=== PATIENT | male | born 1950 | race Caucasian/White ===

== ENCOUNTER 2025-04-03 19:27 | Emergency (ER) | payer MEDICARE, BC ==
[~2025-04-03] VITALS: Ht 172.7 cm; Wt 59.1 kg
[~2025-04-03 19:27] MED LIST: NO HOME MEDS
[2025-04-03 19:36] VITALS: TEMP 97.7
--- NOTE | 2025-04-03 20:01 | Physician Documentation ---
History of Present Illness ~ Chief Complaint: 5150 Stated Complaint: Time Seen by MD: 19:40 HPI Patient presents to the emergency room brought in on a written 5150. Patient was wondering on 44. Could not give a number address therefore police brought in here. History of dementia. We are able to contact brother who states that has dementia is really picked up over the past two months and he feels the patient needs to be conserved. Medication Reconciliation Allergies: Coded Allergies: No Known Allergies (Unverified , 04/03/25) Miscellaneous Medications Home Med List (No Home Medications), (Reported) Home Med List (No Home Medications), (Reported) Past Medical History Patient History: Pulmonary fibrosis FATHER (Pulmonary fibrosis) Brothers (History of pulmonary fibrosis in his elder brother) Review of Systems ROS All review of systems negative except as per HPI Physical Exam Vital Signs: Temperature: 97.7, Source: Oral, Heart Rate: 97, Respiratory Rate: 15, BP: 159/96, Pulse Oximetry: 96, Weight: 59.090 Oxygen Flow Rate: 0 Physical Exam General: Patient is awake, alert, pleasantly demented. Cooperative Head: Normocephalic and atraumatic. Eyes: Conjunctival normal. EOMI. PERRL. ENT: Mucous membranes moist. Neck: Supple, trachea is midline. Chest: Clear to auscultation bilaterally without rales, rhonchi, or wheezes. There is no accessory muscle use or retractions. Cardiac: RRR without murmurs, gallops, or rubs. Psych: Cooperative, forgetful, good eye contact Progress Results/Orders Results/Orders Orders - ARMANDO CHAVEZ MD Urinalysis (04/03/25 19:38) Drug Screen, Urine (04/03/25 19:38) Med Rec (04/03/25 19:38) Close Observation Level (04/03/25 19:38) Covid19 Binax Poc Result Entry (04/03/25 19:38) Regular Diet (04/04/25 Breakfast) Ct Head (04/03/25 19:40) Completed Orders - ARMANDO CHAVEZ MD Cbc/Diff (04/03/25 19:38) Ethanol (04/03/25 19:38) TSH (04/03/25 19:38) BMP (04/03/25 19:38) Ct Head (04/03/25 19:40) Vital Signs 04/03/25 04/03/25 19:36 19:59 Temp 97.7 Pulse 97 Resp 15 18 B/P (MAP) 159/96 Pulse Ox 96 O2 Flow Rate 0 Laboratory Tests Test 04/03/25 20:06 White Blood Count 8.9 Red Blood Count 4.49 L Hemoglobin 12.7 L Hematocrit 37.9 L Mean Corpuscular Volume 84.4 Mean Corpuscular Hemoglobin 28.2 Mean Corpuscular Hemoglobin Concent 33.4 Red Cell Distribution Width 14.7 H Platelet Count 340 Mean Platelet Volume 7.3 L Neutrophils (%) (Auto) 85.1 H Lymphocytes (%) (Auto) 8.4 L Monocytes (%) (Auto) 5.7 Eosinophils (%) (Auto) 0.3 Basophils (%) (Auto) 0.5 Neutrophils # (Auto) 7.6 Lymphocytes # (Auto) 0.7 L Monocytes # (Auto) 0.5 Eosinophils # (Auto) 0.0 Basophils # (Auto) 0.0 CBC Comment Sodium Level 136 Potassium Level 4.5 Chloride Level 100 Carbon Dioxide Level 26.3 Anion Gap 10 Blood Urea Nitrogen 49 H Creatinine 2.10 H Estimated GFR/1.73 m2 31 BUN/Creatinine Ratio 23.3 H Glucose Level 98 Calcium Level 8.2 L Albumin 3.3 L Thyroid Stimulating Hormone (TSH) 0.35 Chemistry Comments Ethyl Alcohol Level < 10 Medical Decision Making Additional information obtaine: old records Findings Patient presents to the emergency room written bilateral written 5150. Labs reviewed and that has no evidence of major pathologic derangements. Family contacted. Patient is medically cleared for mental health evaluation. Differential Dx:Considerations: Include: Alcohol abuse, Anxiety, Bipolar disorder, Conversion disorder, Depression, Encephaloathy, Homicidal, Panic disorder, Personality disorder, Schizophrenia, Substance abuse, Suicidal, Other Departure Disposition: 30 STILL A PATIENT Impression: Primary Impression: Dementia Additional Impression: Gravely disabled Condition: Guarded Referrals: NO PRIMARY CARE PROVIDER (PCP) Signature Scribe Signature: No scribe Attestation: The note accurately reflects work and decisions made by me.Armando Chavez MD 04/03/25 20:47 ARMANDO CHAVEZ MD Apr 03, 2025 20:00
--- NOTE | 2025-04-03 20:14 | RADIOLOGY REPORT ---
EXAM: CT CT HEAD INDICATION: ams TECHNIQUE: CT of the head without intravenous contrast. Radiation Dose : 1. Head: CT Dose: CTDI volume is 61.2 mGy. Dose-length product is 1184.93 mGy*cm The dose indicators for CT are the volume Computed Tomography (CT) Dose Index (CTDIvol) and the Dose Length Product (DLP), and are measured in units of mGy and mGy-cm, respectively. These indicators are not patient dose, but values generated from the CT scanner acquisition factors. The report includes radiation exposure data for exposures received during this examination. COMPARISON: CT CT HEAD on DOS: 02/04/25 FINDINGS: There is no evidence of acute intracranial hemorrhage, extra-axial collection, mass effect, midline shift, herniation or hydrocephalus. The ventricles, sulci and cisterns are age appropriate. The bethea-white differentiation is intact. The visualized paranasal sinuses and mastoid air cells are clear. The surrounding soft tissues and osseous structures are unremarkable. IMPRESSION: No acute intracranial abnormality. Radiation optimization: All CT scans at this facility use at least one of these dose optimization techniques: automated exposure control mA and/or kV adjustment per patient size (includes targeted exams where dose is matched to clinical indication) or iterative reconstruction.
[2025-04-03 20:16] LABS: MEAN PLATELET VOLUME 7.3 FL (7.4-10.4); RED CELL DISTRIBUTION WIDTH 14.7 % (11.5-14.5)
[2025-04-03 20:39] LABS: CREATININE 2.10 MG/DL (0.60-1.10); TOTAL CARBON DIOXIDE 26.3 MMOL/L (24-32); eCRCL 25 ML/MIN; eGFR 31 ML/MIN
[2025-04-03 20:41] LABS: ETHANOL < 10 MG/DL (<10)
[2025-04-03 22:46] LABS: LEUKOCYTE ESTERASE ,URINE NEGATIVE (Neg); NITRITES, URINE NEGATIVE (Neg); OCCULT BLOOD,URINE MODERATE (Neg)
[2025-04-03 22:48] LABS: UA COLLECTION TYPE VOIDED
[2025-04-03 22:52] LABS: SQUAMOUS EPITHELIAL CELL,UR NONE SEEN /LPF (FEW)
[2025-04-03 22:57] LABS: URINE AMPHETAMINE SCREEN POSITIVE (Neg); URINE BARBITUATE SCREEN NEGATIVE (Neg); URINE BENZODIAZEPINES SCREEN NEGATIVE (Neg); URINE CANNABINOID SCREEN POSITIVE (Neg); URINE COCAINE SCREEN NEGATIVE (Neg); URINE METHADONE SCREEN NEGATIVE (Neg); URINE OPIATE SCREEN NEGATIVE (Neg); URINE PHENCYCLIDINE SCREEN NEGATIVE (Neg)
[2025-04-04 15:04] VITALS: BP 120/74; PULSE 68; RESP 16; O2SAT 96
== END 2025-04-04 15:07 | disposition home or self-care (01) ==
LOC: ER 19:28
DX: F03.90 Unspecified dementia, unspecified severity, without behavioral disturbance, psychotic disturbance, mood disturbance, and anxiety (principal); Z73.6 Limitation of activities due to disability; Z20.822 Contact with and (suspected) exposure to COVID-19; Z79.899 Other long term (current) drug therapy
CPT/HCPCS: 36415; 70450; 80048; 80305; 81001; 84443; 85025; 87811; 99285; G0480; 80320